=== PATIENT | female | born 1975 | race Hispanic/Latino ===

== ENCOUNTER 2020-08-03 15:01 | Outpatient (CLI) | payer OTHER ==
--- NOTE | 2020-08-03 15:54 | RAD ---
Exam: Thoracic spine 3 views HISTORY: Pain. FINDINGS: AP, lateral and swimmer's view of the thoracic spine demonstrate 12 thoracic type vertebra. Thoracic spine vertebral body heights are maintained. No fracture. Mild loss of disc space height and osteophyte formation the mid thoracic spine. IMPRESSION: Mild degenerative changes in the mid thoracic spine.
--- NOTE | 2020-08-03 15:56 | RAD ---
Exam: Lumbar spine 2 views HISTORY: Pain. FINDINGS: 5 lumbar type vertebra. Lumbar spine vertebral body height is maintained. No fracture. No s pondylolisthesis or spondylolysis. Visualized sacrum and bony pelvis are intact. No significant loss of disc space height. Minimal ossif ied formation at L3-L4 and L4-L5. Mild to moderate loss of disc space at L5-S1. IMPRESSION: Mild to moderate degenerative change at L5-S1.
== END 2020-08-03 15:02 | disposition home or self-care (01) ==
LOC: BICRAD 15:01
PROVIDERS: ATTEND Family Medicine
DX: M54.9 Dorsalgia, unspecified (principal); M47.817 Spondylosis without myelopathy or radiculopathy, lumbosacral region; M47.814 Spondylosis without myelopathy or radiculopathy, thoracic region
CPT/HCPCS: 72072; 72100